=== PATIENT | male | born 1960 | race Caucasian/White ===

== ENCOUNTER 2021-03-19 17:26 | Inpatient (IN) | payer SELFPAY ==
[~2021-03-19] VITALS: Ht 175.3 cm; Wt 137.9 kg
[~2021-03-19 17:26] MED LIST: METOCLOPRAMIDE HCL 10 MG/2ML VIAL ONE; ONDANSETRON HCL INJ 2MG/ML 2ML 2 MG/ML VIAL ONE; POVIDONE IODINE 0.05% 0.05 % ML PO ONE; PROPOFOL IV EMULSION 10 MG/ML 20 ML VIAL ONE; ROCURONIUM BROMIDE 10 MG/ML 5ML VIAL IV ONE; SEVOFLURANE INHAL SOLN 250 ML PEN BTL ONE
[2021-03-19 18:33] LABS: BASOPHILS # (AUTO) 0.1 (0.0-0.1); BASOPHILS % 0.4 % (0.0-1.0); EOSINOPHILS % 0.1 % (0.0-6.0); HEMATOCRIT 51.8 % (38.2-49.6); HEMOGLOBIN 17.3 g/dL (14.0-18.0); LYMPHOCYTES # (AUTO) 1.5 (1.0-3.2); MEAN CORPUSCULAR HEMOGLOBIN 29.9 pg (28-32); MEAN CORPUSCULAR HGB CONC 33.4 g/dL (31-35); MEAN CORPUSCULAR VOLUME 89.6 fL (81-99); MONOCYTES # (AUTO) 1.4 (0.2-0.8); MONOCYTES % 6.8 % (4.4-11.3); NEUTROPHILS # (AUTO) 17.9 (2.1-6.9); NEUTROPHILS % 84.6 % (38.7-80.0); PLATELET COUNT 319 x10e3/uL (140-360); RED BLOOD COUNT 5.78 x10e6/uL (4.3-5.7); RED CELL DISTRIBUTION WIDTH 13.5 % (11.7-14.4)
[2021-03-19] MEDS ORDERED: Vancomycin IV 1 GM in SODIUM CHLORIDE 0.9% 250ML 250 ML IV STA (18:50)
[2021-03-19 18:52] LABS: ALBUMIN 2.5 g/dL (3.5-5.0); ALBUMIN/GLOBULIN RATIO 0.5 (0.8-2.0); ANION GAP 18.9 mmol/L (8-16); CREATININE, SERUM 1.17 mg/dL (0.72-1.25); POTASSIUM 3.9 mmol/L (3.5-5.1)
[2021-03-19 18:59] LABS: CREATINE KINASE MB 0.6 ng/mL (0-5.0)
[2021-03-19] MEDS: CEFTRIAXONE 1 GM in SODIUM CHLORIDE 0.9% 50ML 50 ML IV SCH (19:00)
[2021-03-19 22:00] VITALS: BP 162/64
[2021-03-20] VITALS (7 sets, daily range): BP systolic 144–177; BP diastolic 64–83
[2021-03-20] MEDS ORDERED: ATENOLOL50 MG PO (00:15)
[2021-03-20] MEDS ORDERED: ASPIRIN CHEW81 MG PO (00:15)
[2021-03-20] MEDS ORDERED: FARXIGA10 MG PO (00:15)
[2021-03-20] MEDS ORDERED: GLIPIZIDE5 MG PO (00:15)
[2021-03-20] MEDS ORDERED: METFORMIN HCL850 MG PO (00:20)
[2021-03-20] MEDS ORDERED: SIMVASTATIN40 MG PO (00:20)
[2021-03-20] MEDS ORDERED: TESTOSTERO200 MG/1 M (00:20)
[2021-03-20] MEDS ORDERED: LOSARTAN POTAS100 MG PO (00:20)
[2021-03-20] MEDS ORDERED: OMEGA 3 1,0001 EACH PO (00:20)
[2021-03-20] MEDS ORDERED: HYDRALAZINE HCL 20 MG/ML VIAL IV PRN (08:30)
[2021-03-20] MEDS ORDERED: DEXTROSE 50% SYRINGE 50 ML IV PRN (08:30)
[2021-03-20] MEDS: GLIPIZIDE 5 MG TAB PO SCH ×2 (09:00→18:27)
[2021-03-20] MEDS ORDERED: ENOXAPARIN SOD INJ 40 MG/0.4 ML SYR SC SCH (09:30)
[2021-03-20] MEDS: ENOXAPARIN SODIUM INJ 100 MG/ML SYR SC SCH ×2 (09:45→21:45)
[2021-03-20] MEDS ORDERED: VALSARTAN 160 MG TAB PO ONE (09:45)
[2021-03-20] MEDS: Vancomycin IV 1 GM in SODIUM CHLORIDE 0.9% 250ML 250 ML IV SCH ×2 (10:00→22:55)
[2021-03-20] MEDS: PIPERACILLIN/TAZOBACTAM 3.375 GM in SODIUM CHLORIDE 0.9% 50ML 50 ML IV SCH ×3 (10:00→22:00)
[2021-03-20] MEDS ORDERED: INSULIN GLARGINE 100 UNITS/ML VIAL SQ ONE (10:00)
[2021-03-20] MEDS: METOPROLOL TARTRATE 50 MG TAB PO SCH ×2 (11:00→18:28)
[2021-03-20] MEDS: INSULIN LISPRO 100 UNIT/1 ML 3ML VIAL SQ SCH ×3 (11:30→21:00)
[2021-03-20 12:31] LABS: INR 1.31; PROTHROMBIN TIME 16.5 seconds (11.9-14.5)
[2021-03-20] MEDS: CEFTRIAXONE 1 GM in SODIUM CHLORIDE 0.9% 50ML 50 ML IV SCH (20:30)
[2021-03-20] MEDS ORDERED: INSULIN GLARGINE 100 UNITS/ML VIAL SQ SCH (21:00)
[2021-03-20] MEDS: CHLORPROMAZINE HCL 25 MG TAB PO PRN (21:15)
[2021-03-20] MEDS ORDERED: SODIUM CHLORIDE 0.9% 250ML 250 ML ONE (21:44)
[2021-03-21] VITALS (8 sets, daily range): BP systolic 136–172; BP diastolic 79–90
[2021-03-21] MEDS: CHLORPROMAZINE HCL 25 MG TAB PO PRN (03:22)
[2021-03-21] MEDS: PIPERACILLIN/TAZOBACTAM 3.375 GM in SODIUM CHLORIDE 0.9% 50ML 50 ML IV SCH ×2 (04:00→10:38)
[2021-03-21] MEDS: VALSARTAN 160 MG TAB PO SCH (06:00)
[2021-03-21 06:45] LABS: BASOPHILS # (AUTO) 0.1 (0.0-0.1); BASOPHILS % 0.3 % (0.0-1.0); EOSINOPHILS # (AUTO) 0.1 (0.0-0.4); EOSINOPHILS % 0.6 % (0.0-6.0); HEMATOCRIT 47.2 % (38.2-49.6); HEMOGLOBIN 15.6 g/dL (14.0-18.0); LYMPHOCYTES # (AUTO) 1.7 (1.0-3.2); LYMPHOCYTES % 9.5 % (18.0-39.1); MEAN CORPUSCULAR HEMOGLOBIN 29.9 pg (28-32); MEAN CORPUSCULAR HGB CONC 33.1 g/dL (31-35); MEAN CORPUSCULAR VOLUME 90.6 fL (81-99); MONOCYTES # (AUTO) 1.2 (0.2-0.8); MONOCYTES % 6.6 % (4.4-11.3); NEUTROPHILS # (AUTO) 14.8 (2.1-6.9); NEUTROPHILS % 82.1 % (38.7-80.0); PLATELET COUNT 318 x10e3/uL (140-360); RED BLOOD COUNT 5.21 x10e6/uL (4.3-5.7); RED CELL DISTRIBUTION WIDTH 13.4 % (11.7-14.4)
[2021-03-21 07:15] LABS: ALBUMIN 2.1 g/dL (3.5-5.0); ALBUMIN/GLOBULIN RATIO 0.5 (0.8-2.0); ANION GAP 17.7 mmol/L (8-16); CALCIUM 8.6 mg/dL (8.4-10.2); CREATININE, SERUM 1.39 mg/dL (0.72-1.25); MAGNESIUM 1.9 MG/DL (1.3-2.1); PHOSPHORUS 2.4 MG/DL (2.3-4.7); POTASSIUM 3.7 mmol/L (3.5-5.1)
[2021-03-21 07:23] LABS: THYROID STIMULATING HORMONE 0.641 uIU/mL (0.350-4.940)
[2021-03-21] MEDS: INSULIN LISPRO 100 UNIT/1 ML 3ML VIAL SQ SCH ×7 (07:30→21:00)
[2021-03-21] MEDS ORDERED: PIPERACILLIN/TAZOBACTAM 3.375 GM VIAL ONE (08:21)
[2021-03-21] MEDS ORDERED: Vancomycin IV 1 GM VIAL ONE (08:21)
[2021-03-21] MEDS: GLIPIZIDE 5 MG TAB PO SCH ×2 (09:25→17:28)
[2021-03-21] MEDS: ENOXAPARIN SODIUM INJ 100 MG/ML SYR SC SCH ×3 (09:25→21:37)
[2021-03-21] MEDS: METOPROLOL TARTRATE 50 MG TAB PO SCH ×2 (09:25→17:28)
[2021-03-21] MEDS: Vancomycin IV 1 GM in SODIUM CHLORIDE 0.9% 250ML 250 ML IV SCH ×2 (11:09→22:00)
[2021-03-21] MEDS ORDERED: SODIUM CHLORIDE 0.9% 250ML 250 ML ONE (11:15)
[2021-03-21] MEDS: CEFEPIME 1 GM in SODIUM CHLORIDE 0.9% 50ML 50 ML IV SCH ×2 (14:41→22:00)
[2021-03-21] MEDS: CLINDAMYCIN PHOS 900MG/ 50ML 50 ML IV SCH ×2 (17:28→20:58)
[2021-03-21] MEDS: INSULIN GLARGINE 100 UNITS/ML VIAL SQ SCH ×2 (20:56→21:00)
[2021-03-22] VITALS (7 sets, daily range): BP systolic 126–172; BP diastolic 80–87
[2021-03-22] MEDS: VALSARTAN 160 MG TAB PO SCH (05:05)
[2021-03-22] MEDS: CEFEPIME 1 GM in SODIUM CHLORIDE 0.9% 50ML 50 ML IV SCH ×3 (05:05→21:02)
[2021-03-22] MEDS: CLINDAMYCIN PHOS 900MG/ 50ML 50 ML IV SCH (05:05)
[2021-03-22] MEDS: INSULIN LISPRO 100 UNIT/1 ML 3ML VIAL SQ SCH ×7 (07:30→20:57)
[2021-03-22] MEDS: GLIPIZIDE 5 MG TAB PO SCH ×2 (08:33→17:50)
[2021-03-22] MEDS: ENOXAPARIN SODIUM INJ 100 MG/ML SYR SC SCH (08:33)
[2021-03-22] MEDS: METOPROLOL TARTRATE 50 MG TAB PO SCH ×2 (08:33→17:50)
[2021-03-22] MEDS: Vancomycin IV 1 GM in SODIUM CHLORIDE 0.9% 250ML 250 ML IV SCH (10:28)
[2021-03-22] MEDS: CHOLESTYRAMINE 4 GM PACKET PO SCH (17:50)
[2021-03-22] MEDS: INSULIN GLARGINE 100 UNITS/ML VIAL SQ SCH (20:58)
[2021-03-23] VITALS (8 sets, daily range): BP systolic 144–177; BP diastolic 80–95
[2021-03-23] MEDS: Vancomycin IV 1 GM in SODIUM CHLORIDE 0.9% 250ML 250 ML IV SCH ×2 (00:27→09:50)
[2021-03-23 05:06] LABS: BASOPHILS # (AUTO) 0.1 (0.0-0.1); EOSINOPHILS # (AUTO) 0.5 (0.0-0.4); EOSINOPHILS % 3.9 % (0.0-6.0); HEMATOCRIT 48.5 % (38.2-49.6); HEMOGLOBIN 15.6 g/dL (14.0-18.0); LYMPHOCYTES # (AUTO) 2.2 (1.0-3.2); MEAN CORPUSCULAR HEMOGLOBIN 30.2 pg (28-32); MEAN CORPUSCULAR HGB CONC 32.2 g/dL (31-35); MEAN CORPUSCULAR VOLUME 93.8 fL (81-99); MONOCYTES # (AUTO) 0.7 (0.2-0.8); MONOCYTES % 5.8 % (4.4-11.3); NEUTROPHILS # (AUTO) 8.5 (2.1-6.9); NEUTROPHILS % 69.9 % (38.7-80.0); PLATELET COUNT 328 x10e3/uL (140-360); RED BLOOD COUNT 5.17 x10e6/uL (4.3-5.7); RED CELL DISTRIBUTION WIDTH 13.9 % (11.7-14.4)
[2021-03-23] MEDS: CEFEPIME 1 GM in SODIUM CHLORIDE 0.9% 50ML 50 ML IV SCH (05:16)
[2021-03-23] MEDS: VALSARTAN 160 MG TAB PO SCH (05:17)
[2021-03-23 05:24] LABS: ANION GAP 14.8 mmol/L (8-16); CALCIUM 8.1 mg/dL (8.4-10.2); CREATININE, SERUM 0.92 mg/dL (0.72-1.25); POTASSIUM 3.8 mmol/L (3.5-5.1)
[2021-03-23] MEDS: INSULIN LISPRO 100 UNIT/1 ML 3ML VIAL SQ SCH ×7 (07:30→20:24)
[2021-03-23] MEDS: METOPROLOL TARTRATE 50 MG TAB PO SCH ×2 (09:00→17:00)
[2021-03-23] MEDS: CHOLESTYRAMINE 4 GM PACKET PO SCH ×3 (09:00→17:00)
[2021-03-23] MEDS: GLIPIZIDE 5 MG TAB PO SCH ×2 (09:00→17:00)
[2021-03-23] MEDS: ENOXAPARIN SOD INJ 40 MG/0.4 ML SYR SC SCH (17:00)
[2021-03-23] MEDS: INSULIN GLARGINE 100 UNITS/ML VIAL SQ SCH (20:26)
[2021-03-24] VITALS (7 sets, daily range): BP systolic 143–171; BP diastolic 64–98
[2021-03-24] MEDS: VALSARTAN 160 MG TAB PO SCH (06:00)
[2021-03-24] MEDS: INSULIN LISPRO 100 UNIT/1 ML 3ML VIAL SQ SCH ×7 (07:30→22:04)
[2021-03-24] MEDS ORDERED: AMLODIPINE BESYLATE 5 MG TAB PO SCH (09:00)
[2021-03-24] MEDS: CHOLESTYRAMINE 4 GM PACKET PO SCH ×2 (09:00→17:55)
[2021-03-24] MEDS: CEFTRIAXONE 2 GM in SODIUM CHLORIDE 0.9% 100 ML IV SCH (09:00)
[2021-03-24] MEDS: GLIPIZIDE 5 MG TAB PO SCH ×2 (11:22→17:54)
[2021-03-24] MEDS: METOPROLOL TARTRATE 50 MG TAB PO SCH ×2 (11:23→17:55)
[2021-03-24] MEDS: ENOXAPARIN SOD INJ 40 MG/0.4 ML SYR SC SCH (17:55)
[2021-03-24] MEDS: INSULIN GLARGINE 100 UNITS/ML VIAL SQ SCH (22:05)
[2021-03-25] VITALS (7 sets, daily range): BP systolic 134–183; BP diastolic 74–87
[2021-03-25] MEDS: VALSARTAN 160 MG TAB PO SCH (05:55)
[2021-03-25] MEDS: INSULIN LISPRO 100 UNIT/1 ML 3ML VIAL SQ SCH ×7 (07:30→22:27)
[2021-03-25] MEDS ORDERED: METOPROLOL TARTRATE 50 MG TAB PO SCH (09:00)
[2021-03-25] MEDS: CEFTRIAXONE 2 GM in SODIUM CHLORIDE 0.9% 100 ML IV SCH (09:06)
[2021-03-25] MEDS: GLIPIZIDE 5 MG TAB PO SCH ×2 (09:06→16:14)
[2021-03-25] MEDS: CHOLESTYRAMINE 4 GM PACKET PO SCH ×3 (09:06→17:59)
[2021-03-25] MEDS: AMLODIPINE BESYLATE 10 MG TAB PO SCH (09:06)
[2021-03-25] MEDS: DOXYCYCLINE HYCLATE TABLET 100 MG TAB PO SCH (16:14)
[2021-03-25] MEDS: ENOXAPARIN SOD INJ 40 MG/0.4 ML SYR SC SCH (16:14)
[2021-03-25] MEDS: METOPROLOL TARTRATE 50 MG TAB PO SCH (22:22)
[2021-03-25] MEDS: INSULIN GLARGINE 100 UNITS/ML VIAL SQ SCH (22:28)
[2021-03-26] VITALS (7 sets, daily range): BP systolic 141–159; BP diastolic 71–81
[2021-03-26] MEDS: VALSARTAN 160 MG TAB PO SCH (05:27)
[2021-03-26] MEDS: INSULIN LISPRO 100 UNIT/1 ML 3ML VIAL SQ SCH ×6 (07:30→16:45)
[2021-03-26] MEDS: DOXYCYCLINE HYCLATE TABLET 100 MG TAB PO SCH (08:09)
[2021-03-26] MEDS: AMLODIPINE BESYLATE 10 MG TAB PO SCH (08:10)
[2021-03-26] MEDS: GLIPIZIDE 5 MG TAB PO SCH ×2 (08:11→16:45)
[2021-03-26] MEDS: METOPROLOL TARTRATE 50 MG TAB PO SCH (08:11)
[2021-03-26] MEDS: CHOLESTYRAMINE 4 GM PACKET PO SCH ×2 (08:55→17:00)
[2021-03-26] MEDS ORDERED: NORVASC10 MG PO (12:54)
[2021-03-26] MEDS ORDERED: HUMULIN 70100 UNIT/1 SC (12:55)
[2021-03-26] MEDS ORDERED: LOPRESSOR25 MG PO (12:57)
[2021-03-26] MEDS ORDERED: CIPRO500 MG PO (12:58)
[2021-03-26] MEDS: ENOXAPARIN SOD INJ 40 MG/0.4 ML SYR SC SCH (16:45)
[2021-03-26] MEDS ORDERED: CIPROFLOXACIN 500 MG TAB PO SCH (18:00)
== END 2021-03-26 17:29 | disposition home or self-care (01) | DRG 853 ==
LOC: ER 17:39 → ERHOLD 19:23 → MED/SURG2 22:10
PROVIDERS: ADMIT Internal Medicine; ATTEND Internal Medicine
PROC: 0JBQ0ZZ Excision of Right Foot Subcutaneous Tissue and Fascia, Open Approach (ICD-10-PCS; 2021-03-20)
PROC: 0Y6M0Z4 Detachment at Right Foot, Complete 1st Ray, Open Approach (ICD-10-PCS; principal; 2021-03-20 14:00)
DX: A41.9 Sepsis, unspecified organism (principal); A48.0 Gas gangrene; E11.52 Type 2 diabetes mellitus with diabetic peripheral angiopathy with gangrene; M86.8X7 Other osteomyelitis, ankle and foot; Z68.41 Body mass index [BMI] 40.0-44.9, adult; E87.2 Acidosis; Z79.899 Other long term (current) drug therapy; E11.69 Type 2 diabetes mellitus with other specified complication; E11.40 Type 2 diabetes mellitus with diabetic neuropathy, unspecified; E66.01 Morbid (severe) obesity due to excess calories; G47.33 Obstructive sleep apnea (adult) (pediatric); Z91.19 Patient's noncompliance with other medical treatment and regimen; Z59.8 Other problems related to housing and economic circumstances; I10 Essential (primary) hypertension; Z20.822 Contact with and (suspected) exposure to COVID-19; E11.65 Type 2 diabetes mellitus with hyperglycemia
CPT/HCPCS: 36415; 71045; 80048; 80053; 80202; 82550; 82553; 82948; 83036; 83605; 83735; 84100; 84443; 84484; 85025; 85610; 85651; 86140; 87040; 87071; 87075; 87205; 88304; 88305; 88311; 93005; 93306; 93925; 99251; 99283; J0692; J0696; J1650; J1815; J2405; J2543; J2765; J3370; J7050; U0002

== ENCOUNTER 2023-01-10 12:30 | Inpatient (IN) | payer OTHER ==
[~2023-01-10] VITALS: Ht 274.3 cm; Wt 119.3 kg
[~2023-01-10 12:30] MED LIST changes: +ASPIRIN CHEW81 MG PO; +ATENOLOL50 MG PO; +CIPRO500 MG PO; +FARXIGA10 MG PO; +GLIPIZIDE5 MG PO; +HUMULIN 70100 UNIT/1 SC; +LOPRESSOR25 MG PO; +LOSARTAN POTAS100 MG PO; +METFORMIN HCL850 MG PO; -METOCLOPRAMIDE HCL 10 MG/2ML VIAL ONE; +NORVASC10 MG PO; +OMEGA 3 1,0001 EACH PO; -ONDANSETRON HCL INJ 2MG/ML 2ML 2 MG/ML VIAL ONE; -POVIDONE IODINE 0.05% 0.05 % ML PO ONE; -PROPOFOL IV EMULSION 10 MG/ML 20 ML VIAL ONE; -ROCURONIUM BROMIDE 10 MG/ML 5ML VIAL IV ONE; -SEVOFLURANE INHAL SOLN 250 ML PEN BTL ONE; +SIMVASTATIN40 MG PO; +TESTOSTERO200 MG/1 M
[2023-01-10 13:26] LABS: BASOPHILS # (AUTO) 0.1 (0.0-0.1); BASOPHILS % 0.7 % (0.0-1.0); EOSINOPHILS # (AUTO) 0.4 (0.0-0.4); EOSINOPHILS % 2.4 % (0.0-6.0); HEMATOCRIT 46.8 % (38.2-49.6); HEMOGLOBIN 15.9 g/dL (14.0-18.0); LYMPHOCYTES # (AUTO) 2.6 (1.0-3.2); LYMPHOCYTES % 15.3 % (18.0-39.1); MEAN CORPUSCULAR HEMOGLOBIN 30.7 pg (28-32); MEAN CORPUSCULAR VOLUME 90.3 fL (81-99); MONOCYTES # (AUTO) 1.5 (0.2-0.8); NEUTROPHILS # (AUTO) 12.1 (2.1-6.9); NEUTROPHILS % 72.3 % (38.7-80.0); PLATELET COUNT 310 x10e3/uL (140-360); RED BLOOD COUNT 5.18 x10e6/uL (4.3-5.7); RED CELL DISTRIBUTION WIDTH 12.6 % (11.7-14.4)
[2023-01-10 13:42] LABS: ALBUMIN 3.3 g/dL (3.5-5.0); ALBUMIN/GLOBULIN RATIO 0.8 (0.8-2.0); ANION GAP 15.1 mmol/L (8-16); CREATININE, SERUM 1.29 mg/dL (0.72-1.25); POTASSIUM 4.1 mmol/L (3.5-5.1)
[2023-01-10] MEDS ORDERED: Vancomycin IV 1 GM in SODIUM CHLORIDE 0.9% 250ML 250 ML IV ONE (17:00)
[2023-01-10 17:20] VITALS: BP 127/75; PULSE 70; RESP 18; TEMP 98.4; O2SAT 100
[2023-01-10 17:31] VITALS: BP 127/75; PULSE 70; RESP 18; TEMP 98.4; O2SAT 100
[2023-01-10 17:38] VITALS: BP 127/75; PULSE 70; RESP 18; TEMP 98.7; O2SAT 100
[2023-01-10] MEDS ORDERED: NIFEDIPINE ER60 MG (17:58)
[2023-01-10] MEDS ORDERED: SIMVASTATIN40 MG PO (17:58)
[2023-01-10 20:00] VITALS: BP 143/83; PULSE 70; RESP 20; TEMP 98.6; O2SAT 99
[2023-01-11] VITALS (8 sets, daily range): BP systolic 122–142; BP diastolic 71–88; PULSE 67–82; RESP 18–20; TEMP 97.5–98.6; O2SAT 98–100
[2023-01-11] MEDS ORDERED: BUPIVACAINE HCL 0.5% INJ 30 ML VIAL INJ ONE (11:13)
[2023-01-11] MEDS ORDERED: DEXAMETHASONE SOD PHOS INJ 4 MG/ML SDV ONE ×2 (11:13→12:52)
[2023-01-11] MEDS ORDERED: ONDANSETRON HCL INJ 2MG/ML 2ML 2 MG/ML VIAL ONE (12:52)
[2023-01-11] MEDS ORDERED: LIDOCAINE HCL 2% LOCAL INJ 5 ML SDV VIAL INJ ONE (12:52)
[2023-01-11] MEDS ORDERED: SEVOFLURANE INHAL SOLN 250 ML PEN BTL ONE (12:52)
[2023-01-11] MEDS ORDERED: PROPOFOL IV EMULSION 10 MG/ML 20 ML VIAL ONE (12:52)
[2023-01-11] MEDS ORDERED: POVIDONE IODINE 0.05% 0.05 % ML PO ONE (12:52)
[2023-01-11] MEDS ORDERED: FENTANYL CITRATE/PF 100MCG/2 ML INJ ONE (14:01)
[2023-01-12] VITALS (7 sets, daily range): BP systolic 122–172; BP diastolic 65–93; PULSE 69–89; RESP 16–20; TEMP 98–98.6; O2SAT 98–100
[2023-01-12] MEDS ORDERED: AMLODIPINE BESYLATE 10 MG TAB PO ONE (20:15)
[2023-01-13] VITALS (7 sets, daily range): BP systolic 150–171; BP diastolic 83–92; PULSE 66–84; RESP 17–18; TEMP 98–98.6; O2SAT 96–99
[2023-01-13] MEDS ORDERED: METOPROLOL TARTRATE 50 MG TAB PO ONE (20:15)
[2023-01-14 01:14] VITALS: BP 155/82; PULSE 63; RESP 17; TEMP 97.5; O2SAT 97
[2023-01-14 05:37] VITALS: BP 184/96; PULSE 68; RESP 16; TEMP 98.4; O2SAT 100
[2023-01-14 08:13] VITALS: BP 162/91; PULSE 63; RESP 20; TEMP 97.9; O2SAT 99
[2023-01-14] MEDS: METOPROLOL TARTRATE 50 MG TAB PO SCH ×2 (08:25→16:35)
[2023-01-14 08:45] VITALS: BP 162/91; PULSE 88; RESP 20; TEMP 97.9; O2SAT 99
[2023-01-14] MEDS ORDERED: HYDRALAZINE HCL 20 MG/ML VIAL IV PRN (09:00)
[2023-01-14] MEDS ORDERED: DEXTROSE 50% SYRINGE 50 ML IV PRN (09:00)
[2023-01-14] MEDS ORDERED: LOSARTAN POTASSIUM 100 MG TAB PO SCH (09:00)
[2023-01-14] MEDS ORDERED: ACETAMINOPHEN/CODEINE 300MG - 30MG TAB PO PRN (09:00)
[2023-01-14 09:11] LABS: BASOPHILS # (AUTO) 0.1 (0.0-0.1); BASOPHILS % 0.9 % (0.0-1.0); EOSINOPHILS # (AUTO) 0.5 (0.0-0.4); HEMATOCRIT 47.3 % (38.2-49.6); LYMPHOCYTES # (AUTO) 2.7 (1.0-3.2); LYMPHOCYTES % 25.8 % (18.0-39.1); MEAN CORPUSCULAR HEMOGLOBIN 30.5 pg (28-32); MEAN CORPUSCULAR HGB CONC 33.8 g/dL (31-35); MEAN CORPUSCULAR VOLUME 90.1 fL (81-99); MONOCYTES # (AUTO) 0.8 (0.2-0.8); MONOCYTES % 7.8 % (4.4-11.3); NEUTROPHILS # (AUTO) 6.3 (2.1-6.9); NEUTROPHILS % 60.2 % (38.7-80.0); PLATELET COUNT 320 x10e3/uL (140-360); RED BLOOD COUNT 5.25 x10e6/uL (4.3-5.7)
[2023-01-14 09:28] LABS: ANION GAP 13.9 mmol/L (8-16); CALCIUM 9.1 mg/dL (8.4-10.2); CREATININE, SERUM 1.21 mg/dL (0.72-1.25); POTASSIUM 3.9 mmol/L (3.5-5.1)
[2023-01-14] MEDS: GABAPENTIN 100 MG CAP PO SCH ×2 (10:15→16:35)
[2023-01-14] MEDS ORDERED: ASPIRIN 325 MG TAB PO SCH (10:15)
[2023-01-14] MEDS: INSULIN LISPRO 100 UNIT/1 ML 3ML VIAL SQ SCH ×2 (11:30→16:30)
[2023-01-14 11:38] VITALS: BP 171/88; PULSE 62; RESP 20; TEMP 98.1; O2SAT 97
[2023-01-14 15:56] VITALS: BP 160/94; PULSE 85; RESP 18; TEMP 98.6; O2SAT 94
[2023-01-14] MEDS ORDERED: ENOXAPARIN SOD INJ 40 MG/0.4 ML SYR SC SCH (17:00)
[2023-01-14] MEDS ORDERED: AUGMENTIN 500-1 EACH PO (17:25)
[2023-01-14] MEDS ORDERED: NIFEDIPINE CR 30 MG TAB PO SCH (21:00)
[2023-01-14] MEDS ORDERED: SIMVASTATIN 40 MG TAB PO SCH (21:00)
== END 2023-01-14 18:56 | disposition home or self-care (01) | DRG 617 ==
LOC: ER 12:38 → ERHOLD 13:06 → MED/SURG2 16:34
PROVIDERS: ADMIT Internal Medicine; ATTEND Internal Medicine
PROC: 0Y6M0Z0 Detachment at Right Foot, Complete, Open Approach (ICD-10-PCS; principal; 2023-01-11 12:02)
DX: E11.621 Type 2 diabetes mellitus with foot ulcer (principal); M86.171 Other acute osteomyelitis, right ankle and foot; L97.514 Non-pressure chronic ulcer of other part of right foot with necrosis of bone; I10 Essential (primary) hypertension; E78.5 Hyperlipidemia, unspecified; E11.40 Type 2 diabetes mellitus with diabetic neuropathy, unspecified; E66.01 Morbid (severe) obesity due to excess calories; E11.51 Type 2 diabetes mellitus with diabetic peripheral angiopathy without gangrene; Z20.822 Contact with and (suspected) exposure to COVID-19; Z79.84 Long term (current) use of oral hypoglycemic drugs
CPT/HCPCS: 36415; 71045; 80048; 80053; 82948; 85025; 86140; 87071; 87075; 87186; 87205; 88304; 88307; 88311; 93005; 93925; 99284; J1100; J1650; J2001; J2405; J2543; J7050